=== PATIENT | male | born 1995 | race Caucasian/White ===

== ENCOUNTER 2016-07-28 09:05 | Emergency (ER) | payer BC ==
--- NOTE | 2016-07-28 09:28 | UC ---
Respiratory Complaint HPI - History of Current Complaint Stated Complaint: SORE THROAT,DIARRHEA,FEVER Time Seen by Provider: 07/28/16 09:19 Hx Obtained From: Patient Onset/Duration: Gradual Onset Timing: Constant Severity Initially: Mild Severity Currently: Mild - Risk Factors Pulmonary Embolism Risk Factors: Negative Cardiac Risk Factors: Negative Pseudomonas Risk Factors: Negative Tuberculosis Risk Factors: Negative - Allergies/Home Medications Allergies/Adverse Reactions: Allergies Allergy/AdvReac Type Severity Reaction Status Date / Time No Known Allergies Allergy Verified 07/28/16 09:31 Home Medications: Home Medications Ibuprofen [Advil] 400 mg PO PRN 07/28/16 [History] PMH/Surg Hx/FS Hx/Imm Hx Previously Healthy: Yes Endocrine History Of: Denies: Thyroid Disease Cardiovascular History Of: Denies: Hypertension Psychological History Of: Denies: Anxiety - Family History Known Family History: Positive: None - Social History Occupation: [employer] Lives: Nursing Home - 4 house mates in [facility] Review of Systems Constitutional: Chills, Fatigue Skin: Negative Eyes: Negative ENT: Negative Respiratory: Negative Cardiovascular: Negative Gastrointestinal: Diarrhea Genitourinary: Negative Motor: Negative Neurovascular: Negative Musculoskeletal: Myalgia Neurological: Negative Psychological: Negative All Other Systems Reviewed And Are Negative: Yes Physical Exam Triage Information Reviewed: Yes Appearance: Well-Appearing, No Pain Distress Eye Exam: Normal ENT Exam: Normal Dental Exam: Normal Neck exam: Normal Neck: Positive: 1 Respiratory Exam: Normal Cardiovascular Exam: Normal Abdominal Exam: Normal Musculoskeletal Exam: Normal Neurological Exam: Normal Psychological Exam: Normal Skin Exam: Normal Respiratory Course/Dx - Course Course Of Treatment: He desires flu testing at this time as he is concerned he has developed flu sx and also wants to be sure since he has 4 house mates. Flu neg - Differential Dx/Diagnosis Differential Diagnosis/HQI/PQRI: Lower Resp Infection, Other - gastroenteritis Provider Diagnoses: Gastroenteritis Discharge - Discharge Plan Condition: Good Disposition: HOME
[2016-07-28 10:19] VITALS: BP 124/78
== END 2016-07-28 10:03 | disposition home or self-care (01) ==
LOC: UCCORT 09:05
DX: K52.9 Noninfective gastroenteritis and colitis, unspecified (principal)
CPT/HCPCS: 87502; 99202; G0463